=== PATIENT | female | born 1990 | race Caucasian/White ===

== ENCOUNTER 2018-05-19 12:57 | Emergency (ER) | payer OTHER ==
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
[2018-05-19] MEDS: TDAP ADULT 0.5 ML INJ (BOOSTRIX) IM ONE (14:47)
[2018-05-19] MEDS: LET GEL TOPICAL 1 EA SYR TP ONE (14:48)
[2018-05-19] MEDS: IBUPROFEN 600 MG TAB PO ONE (15:37)
[2018-05-19 15:53] VITALS: BP 118/92
== END 2018-05-19 15:54 | disposition home or self-care (01) ==
DX: S62.112A Displaced fracture of triquetrum [cuneiform] bone, left wrist, initial encounter for closed fracture (principal); S63.502A Unspecified sprain of left wrist, initial encounter; S09.90XA Unspecified injury of head, initial encounter; V18.0XXA Pedal cycle driver injured in noncollision transport accident in nontraffic accident, initial encounter; Y93.55 Activity, bike riding; Y92.830 Public park as the place of occurrence of the external cause
CPT/HCPCS: L3984